=== PATIENT | female | born 1940 | race Caucasian/White ===

== ENCOUNTER 2023-03-01 17:27 | Inpatient (IN) | payer OTHER ==
[~2023-03-01] VITALS: Ht 30.5 cm; Wt 56.0 kg
[2023-03-01] MEDS ORDERED: ONDANSETRON HCL 4 MG/2 ML VIAL IV PRN (22:15)
[2023-03-01] MEDS ORDERED: MORPHINE SULFATE INJ 2 MG/ml SYRG IV PRN ×2 (22:15)
[2023-03-01] MEDS ORDERED: ACETAMINOPHEN 325 MG TAB PO PRN (22:15)
[2023-03-01] MEDS ORDERED: MORPHINE SULFATE 4 MG/ML SYR/VIAL IV PRN (22:15)
[2023-03-01] MEDS ORDERED: NITROGLYCERIN 0.4 MG SL TAB SL PRN (22:15)
[2023-03-01] MEDS: PANTOPRAZOLE 40mg/50ML NS AE 50 ML IV SCH (22:50)
[2023-03-01 23:28] VITALS: BP 151/63
[2023-03-01] MEDS ORDERED: SPIR50TA5 PO (23:34)
[2023-03-01] MEDS ORDERED: FURO40TA4 PO (23:34)
[2023-03-01] MEDS ORDERED: GLIP5TAB12 PO (23:34)
[2023-03-01] MEDS ORDERED: LEV25T PO (23:34)
[2023-03-01] MEDS ORDERED: LOVA10TA54 PO (23:34)
[2023-03-02 05:00] VITALS: BP 111/89
[2023-03-02 05:17] LABS: Urine Bacteria FEW /hpf (None Seen); Urine Blood Negative /uL (Negative); Urine Hyaline Cast FEW /lpf (0 - 2); Urine Mucus FEW (None Seen); Urine Specific Gravity 1.022 (1.001-1.035); Urine WBC 7 /hpf (0 - 5)
[2023-03-02] MEDS: PANTOPRAZOLE 40mg/50ML NS AE 50 ML IV SCH ×5 (06:27→23:15)
[2023-03-02 06:41] LABS: Basophils # (auto) 0 10 ^3/uL (0-0.2); Eosinophils # (auto) 0.1 10 ^3/uL (0-0.8); Lymphocytes # (auto) 0.3 10 ^3/uL (0.4-5.4); Lymphocytes % (auto) 11.2 % (10.0-50.0); Monocytes # (auto) 0.2 10 ^3/uL (0-1.3); Nucleated Red Blood Cells % 0.1 %; Red Cell Distribution Width 16.5 % (11.8-14.3); White Blood Cell 2.6 10^3/uL (4.4-10.8)
[2023-03-02 06:44] LABS: Basophils % (auto) 0.6 % (0.0-2.0); Eosinophils % (auto) 2.5 % (0.0-7.0); Hematocrit 19.9 % (36.0-46.0); Mean Corpuscular Hemoglobin 29.2 pg (28.0-32.0); Mean Corpuscular Hgb Conc. 34.7 g/dL (32.0-36.0); Mean Corpuscular Volume 84.4 fL (80.0-100.0); Monocytes % (auto) 8.6 % (0.0-12.0); Neutrophils % (auto) 77.1 % (37.0-80.0); Red Blood Cells 2.36 10^6/uL (4.0-5.20)
[2023-03-02 06:52] LABS: Hemoglobin 6.9 g/dL (12.2-16.2)
[2023-03-02 06:57] LABS: INR 1.36 (0.9-1.15); Partial Thromboplastin Time 28.4 sec (24.6-33.4)
[2023-03-02 07:07] LABS: Potassium 3.8 mmol/L (3.5-5.1)
[2023-03-02 07:17] LABS: Albumin 2.3 g/dL (3.4-5.0); BUN/Creatinine Ratio 32.4 (10.0-20.0); Bilirubin, Total 1.8 mg/dL (0.2-1.0); Calcium 8.4 mg/dL (8.5-10.1); Total Protein 5.6 g/dL (6.4-8.2)
[2023-03-02 09:05] VITALS: BP 112/48
[2023-03-02] MEDS ORDERED: FUROSEMIDE 20 MG/2 ML VIAL IV ONE (10:00)
[2023-03-02] MEDS ORDERED: OCTREOTIDE ACETATE 100 MCG in SODIUM CHL 0.9% 50 ML IV ONE (10:00)
[2023-03-02 11:00] LABS: % Iron Saturation 98.4 % (15-50)
[2023-03-02 11:49] LABS: Folate (Folic Acid) 10.88 ng/mL (5.38-24)
[2023-03-02] MEDS: OCTREOTIDE ACETATE 500 MCG in SODIUM CHL 0.9% 99 ML IV SCH ×2 (16:06→20:00)
[2023-03-02 16:40] VITALS: BP 122/63
[2023-03-02 21:55] VITALS: BP 104/54
[2023-03-02 22:12] VITALS: BP 116/58
[2023-03-02 22:46] VITALS: BP 104/54
[2023-03-03] VITALS (9 sets, daily range): BP systolic 97–128; BP diastolic 49–63
[2023-03-03] MEDS: OCTREOTIDE ACETATE 500 MCG in SODIUM CHL 0.9% 99 ML IV SCH ×2 (02:21→17:29)
[2023-03-03] MEDS: PANTOPRAZOLE 40mg/50ML NS AE 50 ML IV SCH ×4 (04:15→20:13)
[2023-03-03 11:23] LABS: Basophils # (auto) 0 10 ^3/uL (0-0.2); Basophils % (auto) 0.4 % (0.0-2.0); Eosinophils # (auto) 0.1 10 ^3/uL (0-0.8); Eosinophils % (auto) 2.8 % (0.0-7.0); Hematocrit 25.3 % (36.0-46.0); Hemoglobin 8.6 g/dL (12.2-16.2); Lymphocytes # (auto) 0.3 10 ^3/uL (0.4-5.4); Lymphocytes % (auto) 8.9 % (10.0-50.0); Mean Corpuscular Hemoglobin 29.1 pg (28.0-32.0); Mean Corpuscular Hgb Conc. 33.9 g/dL (32.0-36.0); Monocytes # (auto) 0.2 10 ^3/uL (0-1.3); Monocytes % (auto) 4.8 % (0.0-12.0); Neutrophils # (auto) 3.1 10 ^3/uL (1.6-8.6); Neutrophils % (auto) 83.1 % (37.0-80.0); Nucleated Red Blood Cells % 0.1 %; Red Blood Cells 2.94 10^6/uL (4.0-5.20); Red Cell Distribution Width 15.8 % (11.8-14.3); White Blood Cell 3.7 10^3/uL (4.4-10.8)
[2023-03-03 11:39] LABS: Potassium 4.2 mmol/L (3.5-5.1)
[2023-03-03 11:43] LABS: BUN/Creatinine Ratio 18.5 (10.0-20.0); Calcium 8.3 mg/dL (8.5-10.1)
[2023-03-03] MEDS ORDERED: FUROSEMIDE 20 MG/2 ML VIAL IV SCH (12:30)
[2023-03-03] MEDS: MUPIROCIN 2% OINT 15gm or 22gm FOR MRSA NARES EACHNOSTRI SCH ×2 (15:24→21:14)
[2023-03-03] MEDS ORDERED: FUROSEMIDE 20 MG/2 ML VIAL IV ONE (15:30)
[2023-03-03] MEDS: ALBUTEROL SULF 2.5 MG/0.5ML(0.5%) NEB SOLN NEB SCH (20:13)
[2023-03-04] VITALS (7 sets, daily range): BP systolic 89–104; BP diastolic 38–55
[2023-03-04] MEDS: PANTOPRAZOLE 40mg/50ML NS AE 50 ML IV SCH ×5 (00:52→22:06)
[2023-03-04] MEDS: OCTREOTIDE ACETATE 500 MCG in SODIUM CHL 0.9% 99 ML IV SCH ×3 (02:07→23:49)
[2023-03-04] MEDS: ALBUTEROL SULF 2.5 MG/0.5ML(0.5%) NEB SOLN NEB SCH ×5 (06:38→18:34)
[2023-03-04] MEDS: MUPIROCIN 2% OINT 15gm or 22gm FOR MRSA NARES EACHNOSTRI SCH ×2 (08:59→23:49)
[2023-03-04] MEDS: FUROSEMIDE 20 MG/2 ML VIAL IV SCH (08:59)
[2023-03-04 10:54] LABS: Basophils # (auto) 0 10 ^3/uL (0-0.2); Eosinophils # (auto) 0.1 10 ^3/uL (0-0.8); Lymphocytes # (auto) 0.3 10 ^3/uL (0.4-5.4); Monocytes # (auto) 0.2 10 ^3/uL (0-1.3); Nucleated Red Blood Cells % 0.1 %; White Blood Cell 3.4 10^3/uL (4.4-10.8)
[2023-03-04 10:57] LABS: Basophils % (auto) 0.5 % (0.0-2.0); Eosinophils % (auto) 2.6 % (0.0-7.0); Hematocrit 24.8 % (36.0-46.0); Hemoglobin 8.6 g/dL (12.2-16.2); Lymphocytes % (auto) 9.2 % (10.0-50.0); Mean Corpuscular Hemoglobin 29.6 pg (28.0-32.0); Mean Corpuscular Hgb Conc. 34.7 g/dL (32.0-36.0); Mean Corpuscular Volume 85.3 fL (80.0-100.0); Monocytes % (auto) 5.9 % (0.0-12.0); Neutrophils # (auto) 2.8 10 ^3/uL (1.6-8.6); Neutrophils % (auto) 81.8 % (37.0-80.0); Red Blood Cells 2.91 10^6/uL (4.0-5.20); Red Cell Distribution Width 15.5 % (11.8-14.3)
[2023-03-04] MEDS ORDERED: PHYTONADIONE(VitK) ORAL Susp 10mg/10ml(1mg/ml) PO ONE (11:00)
[2023-03-04 11:14] LABS: Potassium 3.9 mmol/L (3.5-5.1)
[2023-03-04 11:19] LABS: BUN/Creatinine Ratio 15.2 (10.0-20.0); Calcium 7.9 mg/dL (8.5-10.1)
[2023-03-04] MEDS ORDERED: ONDANSETRON HCL 4 MG/2 ML VIAL IV ONE (11:35)
[2023-03-04] MEDS ORDERED: MIDAZOLAM HCL 2MG/2ML 2ml VIAL (1mg/ml) ONE (19:11)
[2023-03-04] MEDS ORDERED: KETAMINE HCL 10 ML ONE (19:11)
[2023-03-04] MEDS ORDERED: fentaNYL CITRATE 100 MCG/2 ML VL ONE (19:11)
[2023-03-04] MEDS ORDERED: PROPOFOL 10 MG/ML 20 ML IV ONE (19:12)
[2023-03-04] MEDS ORDERED: DexAMETHasone SOD PHOS 10MG/1ML VIAL INJ ONE (19:12)
[2023-03-04] MEDS ORDERED: SODIUM CHLORIDE LOCK 10 ML ONE (19:12)
[2023-03-05] MEDS: PANTOPRAZOLE 40mg/50ML NS AE 50 ML IV SCH ×4 (01:15→15:21)
[2023-03-05 04:30] VITALS: BP 109/51
[2023-03-05 07:56] LABS: Basophils # (auto) 0 10 ^3/uL (0-0.2); Eosinophils # (auto) 0.1 10 ^3/uL (0-0.8); Lymphocytes # (auto) 0.3 10 ^3/uL (0.4-5.4); Monocytes # (auto) 0.2 10 ^3/uL (0-1.3); White Blood Cell 3.1 10^3/uL (4.4-10.8)
[2023-03-05 07:59] LABS: Basophils % (auto) 0.5 % (0.0-2.0); Eosinophils % (auto) 3.6 % (0.0-7.0); Hematocrit 24.3 % (36.0-46.0); Hemoglobin 8.5 g/dL (12.2-16.2); Lymphocytes % (auto) 9.8 % (10.0-50.0); Mean Corpuscular Hemoglobin 29.5 pg (28.0-32.0); Mean Corpuscular Hgb Conc. 34.8 g/dL (32.0-36.0); Mean Corpuscular Volume 84.9 fL (80.0-100.0); Monocytes % (auto) 6.6 % (0.0-12.0); Neutrophils # (auto) 2.5 10 ^3/uL (1.6-8.6); Neutrophils % (auto) 79.5 % (37.0-80.0); Nucleated Red Blood Cells % 0.1 %; Red Blood Cells 2.86 10^6/uL (4.0-5.20)
[2023-03-05] MEDS: OCTREOTIDE ACETATE 500 MCG in SODIUM CHL 0.9% 99 ML IV SCH (09:00)
[2023-03-05 09:07] LABS: BUN/Creatinine Ratio 20.3 (10.0-20.0)
[2023-03-05 09:18] LABS: Potassium 4.3 mmol/L (3.5-5.1)
[2023-03-05 09:37] VITALS: BP 96/45
[2023-03-05] MEDS: MUPIROCIN 2% OINT 15gm or 22gm FOR MRSA NARES EACHNOSTRI SCH (09:58)
[2023-03-05] MEDS: FUROSEMIDE 20 MG/2 ML VIAL IV SCH (09:58)
[2023-03-05] MEDS ORDERED: PANT40T PO (10:24)
[2023-03-05] MEDS ORDERED: MUPI2OIN2 EACHNOSTRI (10:24)
[2023-03-05] MEDS ORDERED: SUCR1SUS10 PO (10:24)
[2023-03-05 14:10] VITALS: BP 105/45
[2023-03-05 16:21] VITALS: BP 125/106
[2023-03-05] MEDS: ALBUTEROL SULF 2.5 MG/0.5ML(0.5%) NEB SOLN NEB SCH (18:28)
[2023-03-05 18:44] VITALS: BP 125/106
== END 2023-03-05 20:10 | disposition home health service (06) | DRG 432 ==
LOC: WEST WING 21:57 → TELE-WESTW 03-04 23:40
PROVIDERS: ADMIT Hospitalist; ATTEND Hospitalist
PROC: 30233N1 Transfusion of Nonautologous Red Blood Cells into Peripheral Vein, Percutaneous Approach (ICD-10-PCS; 2023-03-02)
PROC: 0W9G3ZZ Drainage of Peritoneal Cavity, Percutaneous Approach (ICD-10-PCS; 2023-03-03)
PROC: 30233R1 Transfusion of Nonautologous Platelets into Peripheral Vein, Percutaneous Approach (ICD-10-PCS; 2023-03-03)
PROC: 06L38CZ Occlusion of Esophageal Vein with Extraluminal Device, Via Natural or Artificial Opening Endoscopic (ICD-10-PCS; principal; 2023-03-04 19:23)
DX: K74.60 Unspecified cirrhosis of liver (principal); I50.33 Acute on chronic diastolic (congestive) heart failure; I85.11 Secondary esophageal varices with bleeding; J96.01 Acute respiratory failure with hypoxia; D61.818 Other pancytopenia; K92.0 Hematemesis; R18.8 Other ascites; J98.11 Atelectasis; Z20.822 Contact with and (suspected) exposure to COVID-19; I11.0 Hypertensive heart disease with heart failure; E10.9 Type 1 diabetes mellitus without complications; E03.9 Hypothyroidism, unspecified; E78.5 Hyperlipidemia, unspecified; Z79.899 Other long term (current) drug therapy; Z80.0 Family history of malignant neoplasm of digestive organs; Z82.3 Family history of stroke; Z83.3 Family history of diabetes mellitus; I48.91 Unspecified atrial fibrillation
CPT/HCPCS: 36415; 71045; 74177; 76604; 76856; 76942; 80048; 80053; 81001; 82607; 82746; 83540; 83550; 83986; 85025; 85610; 85730; 86850; 86900; 86901; 86920; 87081; 87205; 87426; 89051; 93306; 93886; 94640; G0378; J1100; J2250; J2405; J2704

== ENCOUNTER 2023-03-24 10:24 | Inpatient (IN) | payer OTHER ==
[~2023-03-24] VITALS: Ht 147.3 cm; Wt 60.1 kg
[2023-03-24] VITALS (53 sets, daily range): BP systolic 75–122; BP diastolic 35–73
[~2023-03-24 10:24] MED LIST: FURO40TA4 PO; LEV25T PO; LOVA10TA54 PO; MUPI2OIN2 EACHNOSTRI; PANT40T PO; SPIR50TA5 PO; SUCR1SUS10 PO
[2023-03-24 10:52] LABS: Basophils # (auto) 0 10 ^3/uL (0-0.2); Eosinophils # (auto) 0 10 ^3/uL (0-0.8); Lymphocytes # (auto) 0.4 10 ^3/uL (0.4-5.4); Monocytes # (auto) 0.3 10 ^3/uL (0-1.3); White Blood Cell 3.6 10^3/uL (4.4-10.8)
[2023-03-24] MEDS ORDERED: SODIUM CHL 0.9% 50 ML ONE (10:52)
[2023-03-24] MEDS ORDERED: ANGIOMAX 250 MG VIAL IV ONE (10:52)
[2023-03-24] MEDS ORDERED: MIDAZOLAM HCL 2MG/2ML 2ml VIAL (1mg/ml) ONE (10:55)
[2023-03-24] MEDS ORDERED: fentaNYL CITRATE 100 MCG/2 ML VL ONE (10:55)
[2023-03-24 10:56] LABS: Basophils % (auto) 0.2 % (0.0-2.0); Eosinophils % (auto) 0.3 % (0.0-7.0); Hematocrit 15.1 % (36.0-46.0); Mean Corpuscular Hemoglobin 29.2 pg (28.0-32.0); Mean Corpuscular Hgb Conc. 35.2 g/dL (32.0-36.0); Mean Corpuscular Volume 82.9 fL (80.0-100.0); Monocytes % (auto) 8.2 % (0.0-12.0); Neutrophils # (auto) 2.9 10 ^3/uL (1.6-8.6); Neutrophils % (auto) 81.3 % (37.0-80.0); Red Blood Cells 1.82 10^6/uL (4.0-5.20); Red Cell Distribution Width 14.8 % (11.8-14.3)
[2023-03-24] MEDS ORDERED: LIDOCAINE 2%HCL (LOCAL ANESTH.) INJ 10ml MDV ONE (10:56)
[2023-03-24] MEDS ORDERED: IODIXANOL 320MG/ML 100ML BTL IV ONE ×2 (10:56→11:36)
[2023-03-24] MEDS ORDERED: ASPirin 81 mg TAB PO ONE ×2 (11:00)
[2023-03-24] MEDS ORDERED: SODIUM CHLORIDE 0.9% 250 ML IV ONE (11:00)
[2023-03-24] MEDS: SODIUM CHLORIDE 0.9% 250 ML IV ONE ×2 (11:02→12:31)
[2023-03-24 11:04] LABS: Hemoglobin 5.3 g/dL (12.2-16.2)
[2023-03-24 11:16] LABS: INR 1.29 (0.9-1.15); Partial Thromboplastin Time 25.4 sec (24.6-33.4)
[2023-03-24] MEDS ORDERED: ATROPINE SULF 1 MG/10ml SYR ONE (11:18)
[2023-03-24] MEDS ORDERED: EPINEPHrine HCL 1 MG/10 ML SYRG ONE (11:18)
[2023-03-24] MEDS ORDERED: HEPARIN SODIUM (PORCINE) 5000 UNITS/ML 1ML VIAL ONE (11:19)
[2023-03-24] MEDS ORDERED: VERAPAMIL 2.5MG/ML INJ 2ML VIAL IV ONE (11:19)
[2023-03-24 11:25] LABS: Albumin 2.4 g/dL (3.4-5.0); Magnesium 2.1 mg/dL (1.6-2.6); Potassium 3.7 mmol/L (3.5-5.1)
[2023-03-24] MEDS ORDERED: LIDOCAINE 2%HCL (LOCAL ANESTH.) INJ 20ML MDV ONE (11:27)
[2023-03-24 11:28] LABS: BUN/Creatinine Ratio 26.6 (10.0-20.0); Bilirubin, Total 2.1 mg/dL (0.2-1.0); Total Protein 6.3 g/dL (6.4-8.2)
[2023-03-24] MEDS ORDERED: GLIP5TAB12 PO (11:41)
[2023-03-24] MEDS ORDERED: ALBUAER3 IN (11:43)
[2023-03-24] MEDS ORDERED: hydrALAZINE HCL 20 MG/ML VL IV PRN (11:45)
[2023-03-24] MEDS ORDERED: MORPHINE SULFATE INJ 2 MG/ml SYRG IV PRN (11:45)
[2023-03-24] MEDS ORDERED: ONDANSETRON HCL 4 MG/2 ML VIAL IV PRN (11:45)
[2023-03-24] MEDS ORDERED: DOCUSATE SOD 100 MG CAP PO PRN (11:45)
[2023-03-24] MEDS ORDERED: NITROGLYCERIN 0.4 MG SL TAB SL PRN (11:45)
[2023-03-24] MEDS ORDERED: HYDROcodone-ACET 5/325MG TAB PO PRN (11:45)
[2023-03-24] MEDS ORDERED: CLOPIDOGREL 300 MG TAB ONE (12:02)
[2023-03-24] MEDS ORDERED: ASPirin 325 MG TAB PO ONE (12:30)
[2023-03-24] MEDS ORDERED: NOREPINEPHRINE 8 MG/250ML KIT 250 ML IV ONE (12:54)
[2023-03-24] MEDS: NOREPINEPHRINE 8 MG/250ML KIT 250 ML IV SCH (12:57)
[2023-03-24] MEDS ORDERED: SODIUM CHLORIDE 0.9% 1,000 ML IV ONE (13:00)
[2023-03-24] MEDS: PANTOPRAZOLE 40mg/50ML NS AE 50 ML IV SCH ×3 (14:15→23:30)
[2023-03-24] MEDS: SODIUM CHLORIDE 0.9% 1,000 ML IV SCH (14:35)
[2023-03-24] MEDS: SODIUM CHLOR 0.9% PF (SALINE LOCK) 10ML VIAL/SYR IV SCH ×2 (14:47→21:28)
[2023-03-24 18:24] LABS: Hematocrit 23.3 % (36.0-46.0)
[2023-03-24] MEDS ORDERED: DEXTROSE (50%) 50ML SYRG IV PRN (18:30)
[2023-03-24 18:49] LABS: Albumin 2.3 g/dL (3.4-5.0); Calcium 8.1 mg/dL (8.5-10.1); Magnesium 1.9 mg/dL (1.6-2.6); Potassium 3.6 mmol/L (3.5-5.1)
[2023-03-24 18:53] LABS: BUN/Creatinine Ratio 27.8 (10.0-20.0); Bilirubin, Total 2.2 mg/dL (0.2-1.0); Total Protein 5.8 g/dL (6.4-8.2)
[2023-03-24] MEDS: PRAVASTATIN SODIUM 20 MG TAB PO SCH (21:28)
[2023-03-24] MEDS: ACCU-CHEK COMFORT CURVE STRIP VI SCH (21:29)
[2023-03-24] MEDS: InsuLIN REG 1unit/0.01ml Soln (100units/ml) SC SCH (21:29)
[2023-03-24] MEDS: ACETAMINOPHEN 325 MG TAB PO PRN (21:44)
[2023-03-25] VITALS (92 sets, daily range): BP systolic 76–141; BP diastolic 22–75
[2023-03-25] MEDS: SUCRALFATE 1 GM/10 ML ORAL SUSP PO SCH ×4 (00:11→18:27)
[2023-03-25] MEDS: PANTOPRAZOLE 40mg/50ML NS AE 50 ML IV SCH ×4 (04:30→20:00)
[2023-03-25 04:48] LABS: Hematocrit 24.4 % (36.0-46.0); Hemoglobin 8.4 g/dL (12.2-16.2); Mean Corpuscular Hemoglobin 29.6 pg (28.0-32.0); Mean Corpuscular Hgb Conc. 34.3 g/dL (32.0-36.0); Mean Corpuscular Volume 86.4 fL (80.0-100.0); Red Blood Cells 2.83 10^6/uL (4.0-5.20); Red Cell Distribution Width 14.8 % (11.8-14.3)
[2023-03-25 04:53] LABS: Basophils % (manual) 0 (0.0-2.0); Blast Cells 0; Metamyelocytes % 0; Myelocytes % 0; Promyelocytes % 0; Reactive Lymphocytes 0
[2023-03-25 04:55] LABS: Calcium 8.1 mg/dL (8.5-10.1); Potassium 3.6 mmol/L (3.5-5.1)
[2023-03-25 04:59] LABS: BUN/Creatinine Ratio 30.8 (10.0-20.0)
[2023-03-25 05:23] LABS: Band Neutrophils % (manual) 3; Eosinophils % (manual) 1 (0-7); Lymphocytes % (manual) 20 (10.0-50.0); Monocytes % (manual) 1 (0-12)
[2023-03-25] MEDS: SODIUM CHLOR 0.9% PF (SALINE LOCK) 10ML VIAL/SYR IV SCH ×3 (06:12→22:01)
[2023-03-25] MEDS: SODIUM CHLORIDE 0.9% 1,000 ML IV SCH (06:39)
[2023-03-25] MEDS: LEVOTHYROXINE SODIUM 25 MCG TAB PO SCH (06:39)
[2023-03-25] MEDS: InsuLIN REG 1unit/0.01ml Soln (100units/ml) SC SCH ×4 (06:42→22:13)
[2023-03-25] MEDS: ACCU-CHEK COMFORT CURVE STRIP VI SCH ×4 (07:00→22:01)
[2023-03-25 08:06] LABS: Basophils # (auto) 0 10 ^3/uL (0-0.2); Eosinophils # (auto) 0 10 ^3/uL (0-0.8); Eosinophils % (auto) 0.6 % (0.0-7.0); Hemoglobin 9.3 g/dL (12.2-16.2); Lymphocytes # (auto) 0.2 10 ^3/uL (0.4-5.4); Monocytes # (auto) 0.1 10 ^3/uL (0-1.3); Neutrophils # (auto) 1.2 10 ^3/uL (1.6-8.6)
[2023-03-25 08:08] LABS: Basophils % (auto) 0.4 % (0.0-2.0); Hematocrit 26.9 % (36.0-46.0); Lymphocytes % (auto) 13.6 % (10.0-50.0); Mean Corpuscular Hemoglobin 29.9 pg (28.0-32.0); Mean Corpuscular Hgb Conc. 34.7 g/dL (32.0-36.0); Neutrophils % (auto) 76.4 % (37.0-80.0); Nucleated Red Blood Cells % 0.4 %; Red Blood Cells 3.12 10^6/uL (4.0-5.20); Red Cell Distribution Width 14.7 % (11.8-14.3)
[2023-03-25 09:22] LABS: White Blood Cell 1.5 10^3/uL (4.4-10.8)
[2023-03-25] MEDS ORDERED: MORPHINE SULFATE INJ 2 MG/ml SYRG IV ONE (11:15)
[2023-03-25] MEDS ORDERED: FILGRASTIM (TBO) 300 MCG/0.5 ML SYRG SC ONE (13:15)
[2023-03-25] MEDS: NOREPINEPHRINE 8 MG/250ML KIT 250 ML IV SCH (14:00)
[2023-03-25] MEDS: ALBUMIN 25% 100 ML IV SCH ×2 (15:20→18:28)
[2023-03-25] MEDS: cefTRIAXone 1GM/50ML D5W 50 ML IV SCH (19:20)
[2023-03-25] MEDS: PRAVASTATIN SODIUM 20 MG TAB PO SCH (22:01)
[2023-03-25 23:28] LABS: Urine Bacteria NONE SEEN /hpf (None Seen); Urine Blood Negative /uL (Negative); Urine Mucus FEW (None Seen); Urine Specific Gravity 1.049 (1.001-1.035); Urine WBC 1 /hpf (0 - 5)
[2023-03-26] VITALS (73 sets, daily range): BP systolic 93–130; BP diastolic 38–68
[2023-03-26] MEDS: PANTOPRAZOLE 40mg/50ML NS AE 50 ML IV SCH ×5 (00:43→22:04)
[2023-03-26] MEDS: ALBUMIN 25% 100 ML IV SCH (02:31)
[2023-03-26 03:30] LABS: Eosinophils # (auto) 0 10 ^3/uL (0-0.8); Eosinophils % (auto) 0.2 % (0.0-7.0); Neutrophils # (auto) 5.4 10 ^3/uL (1.6-8.6); Red Cell Distribution Width 15.2 % (11.8-14.3)
[2023-03-26 03:31] LABS: Basophils # (auto) 0 10 ^3/uL (0-0.2); Basophils % (auto) 0.4 % (0.0-2.0); Lymphocytes # (auto) 0.4 10 ^3/uL (0.4-5.4); Lymphocytes % (auto) 6.2 % (10.0-50.0); Mean Corpuscular Hemoglobin 30.5 pg (28.0-32.0); Mean Corpuscular Hgb Conc. 34.9 g/dL (32.0-36.0); Mean Corpuscular Volume 87.4 fL (80.0-100.0); Monocytes # (auto) 0.5 10 ^3/uL (0-1.3); Monocytes % (auto) 7.6 % (0.0-12.0); Neutrophils % (auto) 85.6 % (37.0-80.0); Nucleated Red Blood Cells % 0.1 %; Red Blood Cells 2.28 10^6/uL (4.0-5.20); White Blood Cell 6.3 10^3/uL (4.4-10.8)
[2023-03-26 04:12] LABS: Calcium 8.8 mg/dL (8.5-10.1); Potassium 3.5 mmol/L (3.5-5.1)
[2023-03-26 04:14] LABS: BUN/Creatinine Ratio 25.3 (10.0-20.0)
[2023-03-26] MEDS: InsuLIN REG 1unit/0.01ml Soln (100units/ml) SC SCH ×4 (06:06→22:19)
[2023-03-26] MEDS: LEVOTHYROXINE SODIUM 25 MCG TAB PO SCH (06:06)
[2023-03-26] MEDS: SUCRALFATE 1 GM/10 ML ORAL SUSP PO SCH ×4 (06:06→18:48)
[2023-03-26] MEDS: SODIUM CHLOR 0.9% PF (SALINE LOCK) 10ML VIAL/SYR IV SCH ×4 (06:06→22:10)
[2023-03-26] MEDS: NOREPINEPHRINE 8 MG/250ML KIT 250 ML IV SCH (06:15)
[2023-03-26] MEDS: ACCU-CHEK COMFORT CURVE STRIP VI SCH ×4 (06:15→22:11)
[2023-03-26] MEDS ORDERED: POTASSIUM EFFERVESENT TAB 25 MEQ PO ONE (08:00)
[2023-03-26 09:49] LABS: INR 1.64 (0.9-1.15); Partial Thromboplastin Time 37.3 sec (24.6-33.4)
[2023-03-26] MEDS ORDERED: ASPirin 81 mg TAB PO SCH (10:00)
[2023-03-26] MEDS: CLOPIDOGREL BISULFATE 75 MG TAB PO SCH (10:16)
[2023-03-26] MEDS: cefTRIAXone 1GM/50ML D5W 50 ML IV SCH (10:16)
[2023-03-26] MEDS: FILGRASTIM (TBO) 300 MCG/0.5 ML SYRG SC SCH (10:17)
[2023-03-26] MEDS ORDERED: LIDOCAINE 1% (LOCAL ANESTH.) PF 5ml SDV ID ONE (15:45)
[2023-03-26] MEDS: PRAVASTATIN SODIUM 20 MG TAB PO SCH (22:04)
[2023-03-27] VITALS (25 sets, daily range): BP systolic 86–120; BP diastolic 37–57
[2023-03-27] MEDS: SUCRALFATE 1 GM/10 ML ORAL SUSP PO SCH ×5 (00:18→23:35)
[2023-03-27] MEDS: PANTOPRAZOLE 40mg/50ML NS AE 50 ML IV SCH ×5 (03:39→20:28)
[2023-03-27 06:26] LABS: Basophils # (auto) 0 10 ^3/uL (0-0.2); Eosinophils # (auto) 0 10 ^3/uL (0-0.8); Hemoglobin 9.4 g/dL (12.2-16.2); Lymphocytes # (auto) 0.2 10 ^3/uL (0.4-5.4); Monocytes # (auto) 0.1 10 ^3/uL (0-1.3); Neutrophils # (auto) 2.5 10 ^3/uL (1.6-8.6); White Blood Cell 2.9 10^3/uL (4.4-10.8)
[2023-03-27 06:29] LABS: Basophils % (auto) 0.2 % (0.0-2.0); Eosinophils % (auto) 1.5 % (0.0-7.0); Lymphocytes % (auto) 8.5 % (10.0-50.0); Mean Corpuscular Hemoglobin 29.6 pg (28.0-32.0); Mean Corpuscular Hgb Conc. 34.9 g/dL (32.0-36.0); Mean Corpuscular Volume 84.7 fL (80.0-100.0); Neutrophils % (auto) 86.8 % (37.0-80.0); Nucleated Red Blood Cells % 0.2 %; Red Blood Cells 3.19 10^6/uL (4.0-5.20)
[2023-03-27 06:43] LABS: BUN/Creatinine Ratio 28.8 (10.0-20.0)
[2023-03-27] MEDS: SODIUM CHLOR 0.9% PF (SALINE LOCK) 10ML VIAL/SYR IV SCH ×5 (06:51→22:21)
[2023-03-27] MEDS: InsuLIN REG 1unit/0.01ml Soln (100units/ml) SC SCH ×4 (07:05→22:32)
[2023-03-27] MEDS: ACCU-CHEK COMFORT CURVE STRIP VI SCH ×4 (07:06→22:25)
[2023-03-27] MEDS: LEVOTHYROXINE SODIUM 25 MCG TAB PO SCH (07:11)
[2023-03-27] MEDS: CLOPIDOGREL BISULFATE 75 MG TAB PO SCH (10:41)
[2023-03-27] MEDS: FILGRASTIM (TBO) 300 MCG/0.5 ML SYRG SC SCH (10:42)
[2023-03-27] MEDS: CIPROFLOXACIN HCL 500 MG TAB PO SCH ×2 (11:28→22:23)
[2023-03-27 12:32] LABS: Basophils # (auto) 0 10 ^3/uL (0-0.2); Eosinophils # (auto) 0 10 ^3/uL (0-0.8); Eosinophils % (auto) 1.5 % (0.0-7.0); Hemoglobin 9.3 g/dL (12.2-16.2); Monocytes # (auto) 0.1 10 ^3/uL (0-1.3); Neutrophils # (auto) 2.1 10 ^3/uL (1.6-8.6); White Blood Cell 2.5 10^3/uL (4.4-10.8)
[2023-03-27 12:34] LABS: Basophils % (auto) 0.1 % (0.0-2.0); Hematocrit 26.9 % (36.0-46.0); Lymphocytes # (auto) 0.2 10 ^3/uL (0.4-5.4); Lymphocytes % (auto) 9.3 % (10.0-50.0); Mean Corpuscular Hemoglobin 29.3 pg (28.0-32.0); Mean Corpuscular Hgb Conc. 34.6 g/dL (32.0-36.0); Mean Corpuscular Volume 84.7 fL (80.0-100.0); Monocytes % (auto) 5.9 % (0.0-12.0); Neutrophils % (auto) 83.2 % (37.0-80.0); Nucleated Red Blood Cells % 0.1 %; Red Blood Cells 3.17 10^6/uL (4.0-5.20); Red Cell Distribution Width 16.1 % (11.8-14.3)
[2023-03-27] MEDS: PRAVASTATIN SODIUM 20 MG TAB PO SCH (22:22)
[2023-03-28] MEDS: ACETAMINOPHEN 325 MG TAB PO PRN ×2 (00:28→17:34)
[2023-03-28] MEDS: PANTOPRAZOLE 40mg/50ML NS AE 50 ML IV SCH ×4 (02:02→17:34)
[2023-03-28 05:00] VITALS: BP 101/51
[2023-03-28] MEDS: SUCRALFATE 1 GM/10 ML ORAL SUSP PO SCH ×3 (06:34→17:52)
[2023-03-28] MEDS: LEVOTHYROXINE SODIUM 25 MCG TAB PO SCH (06:34)
[2023-03-28] MEDS: SODIUM CHLOR 0.9% PF (SALINE LOCK) 10ML VIAL/SYR IV SCH ×5 (06:40→21:33)
[2023-03-28] MEDS: InsuLIN REG 1unit/0.01ml Soln (100units/ml) SC SCH ×4 (06:40→21:36)
[2023-03-28] MEDS: ACCU-CHEK COMFORT CURVE STRIP VI SCH ×4 (06:41→21:33)
[2023-03-28] MEDS ORDERED: CIP500T PO (07:57)
[2023-03-28] MEDS ORDERED: SUCR1SUS10 PO (07:57)
[2023-03-28] MEDS ORDERED: CLOP75TA70 PO (07:57)
[2023-03-28] MEDS ORDERED: PANT40T PO (07:57)
[2023-03-28 09:00] VITALS: BP 99/39
[2023-03-28] MEDS: FUROSEMIDE 20 MG TAB PO SCH (10:00)
[2023-03-28] MEDS: CLOPIDOGREL BISULFATE 75 MG TAB PO SCH (10:23)
[2023-03-28] MEDS: CIPROFLOXACIN HCL 500 MG TAB PO SCH ×2 (10:24→21:32)
[2023-03-28] MEDS: FILGRASTIM (TBO) 300 MCG/0.5 ML SYRG SC SCH (10:33)
[2023-03-28 13:00] VITALS: BP 110/65
[2023-03-28 17:03] VITALS: BP 113/48
[2023-03-28] MEDS: PRAVASTATIN SODIUM 20 MG TAB PO SCH (21:32)
[2023-03-28 22:00] VITALS: BP 99/46
[2023-03-29] MEDS: SUCRALFATE 1 GM/10 ML ORAL SUSP PO SCH ×3 (00:01→12:04)
[2023-03-29] MEDS: ACETAMINOPHEN 325 MG TAB PO PRN (00:06)
[2023-03-29 05:00] VITALS: BP 105/51
[2023-03-29] MEDS: SODIUM CHLOR 0.9% PF (SALINE LOCK) 10ML VIAL/SYR IV SCH ×2 (05:39→09:52)
[2023-03-29] MEDS: PANTOPRAZOLE 40mg/50ML NS AE 50 ML IV SCH ×2 (05:39)
[2023-03-29] MEDS: ACCU-CHEK COMFORT CURVE STRIP VI SCH ×2 (05:46→12:04)
[2023-03-29] MEDS: LEVOTHYROXINE SODIUM 25 MCG TAB PO SCH (05:48)
[2023-03-29] MEDS: InsuLIN REG 1unit/0.01ml Soln (100units/ml) SC SCH ×2 (05:51→12:10)
[2023-03-29 09:00] VITALS: BP 103/57
[2023-03-29] MEDS: CIPROFLOXACIN HCL 500 MG TAB PO SCH (09:44)
[2023-03-29] MEDS: FUROSEMIDE 20 MG TAB PO SCH (09:45)
[2023-03-29] MEDS: CLOPIDOGREL BISULFATE 75 MG TAB PO SCH (09:46)
[2023-03-29] MEDS: FILGRASTIM (TBO) 300 MCG/0.5 ML SYRG SC SCH (09:46)
[2023-03-29 13:00] VITALS: BP 100/53
[2023-03-29 16:13] VITALS: BP 103/57
[2023-03-29 17:00] VITALS: BP 112/76
[2023-03-29] MEDS ORDERED: PANTOPRAZOLE 40 MG TAB PO SCH (22:00)
== END 2023-03-29 17:40 | disposition home health service (06) | DRG 248 ==
LOC: ER 10:24 → TELE 11:46 → ICU WEST 17:15 → TELE-CENTR 03-27 13:46
PROVIDERS: ADMIT Internal Medicine; ATTEND Internal Medicine
PROC: 02703DZ Dilation of Coronary Artery, One Artery with Intraluminal Device, Percutaneous Approach (ICD-10-PCS; principal; 2023-03-24)
PROC: 4A023N7 Measurement of Cardiac Sampling and Pressure, Left Heart, Percutaneous Approach (ICD-10-PCS; 2023-03-24)
PROC: B211YZZ Fluoroscopy of Multiple Coronary Arteries using Other Contrast (ICD-10-PCS; 2023-03-24)
PROC: B215YZZ Fluoroscopy of Left Heart using Other Contrast (ICD-10-PCS; 2023-03-24)
PROC: B41FYZZ Fluoroscopy of Right Lower Extremity Arteries using Other Contrast (ICD-10-PCS; 2023-03-24)
PROC: 30233N1 Transfusion of Nonautologous Red Blood Cells into Peripheral Vein, Percutaneous Approach (ICD-10-PCS; 2023-03-24)
PROC: 0W9G3ZZ Drainage of Peritoneal Cavity, Percutaneous Approach (ICD-10-PCS; 2023-03-25)
PROC: 02HV33Z Insertion of Infusion Device into Superior Vena Cava, Percutaneous Approach (ICD-10-PCS; 2023-03-26)
PROC: B548ZZA Ultrasonography of Superior Vena Cava, Guidance (ICD-10-PCS; 2023-03-26)
DX: I21.19 ST elevation (STEMI) myocardial infarction involving other coronary artery of inferior wall (principal); I50.31 Acute diastolic (congestive) heart failure; R18.8 Other ascites; J96.11 Chronic respiratory failure with hypoxia; D61.818 Other pancytopenia; K74.60 Unspecified cirrhosis of liver; E11.9 Type 2 diabetes mellitus without complications; K75.81 Nonalcoholic steatohepatitis (NASH); G56.00 Carpal tunnel syndrome, unspecified upper limb; E03.9 Hypothyroidism, unspecified; E78.5 Hyperlipidemia, unspecified; D64.9 Anemia, unspecified; D72.819 Decreased white blood cell count, unspecified; Z79.02 Long term (current) use of antithrombotics/antiplatelets; Z79.899 Other long term (current) drug therapy; I11.0 Hypertensive heart disease with heart failure
CPT/HCPCS: 36415; 36430; 36569; 71045; 74176; 75710; 76705; 76856; 76942; 80048; 80053; 80061; 81001; 82962; 83036; 83735; 83880; 83986; 84443; 84484; 85007; 85014; 85018; 85025; 85027; 85610; 85730; 86850; 86900; 86901; 86920; 87040; 87077; 87081; 87086; 87186; 87205; 89051; 92928; 93005; 93306; 93458; 96361; 96365; 99152; 99153; 99291; G0378; J0696; J1447; J1815; J2001; J2250; J2405; P9047; Q9967

== ENCOUNTER 2023-06-27 00:53 | Inpatient (IN) | payer OTHER ==
[~2023-06-27] VITALS: Ht 152.4 cm; Wt 46.7 kg
[~2023-06-27 00:53] MED LIST changes: +ALBUAER3 IN; +CIP500T PO; +CLOP75TA70 PO; +GLIP5TAB12 PO; -MUPI2OIN2 EACHNOSTRI; -SPIR50TA5 PO; -SUCR1SUS10 PO; +SUCR1SUS26 PO
[2023-06-27 01:25] VITALS: PULSE 81; RESP 22; O2SAT 93
[2023-06-27 01:40] LABS: Basophils # (auto) 0 10 ^3/uL (0-0.2); Basophils % (auto) 0.3 % (0.0-2.0); Eosinophils # (auto) 0 10 ^3/uL (0-0.8); Eosinophils % (auto) 0.4 % (0.0-7.0); Hematocrit 38.7 % (36.0-46.0); Hemoglobin 12.5 g/dL (12.2-16.2); Lymphocytes # (auto) 0.3 10 ^3/uL (0.4-5.4); Lymphocytes % (auto) 3.8 % (10.0-50.0); Mean Corpuscular Hemoglobin 29.4 pg (28.0-32.0); Mean Corpuscular Hgb Conc. 32.3 g/dL (32.0-36.0); Mean Corpuscular Volume 90.9 fL (80.0-100.0); Monocytes # (auto) 0.6 10 ^3/uL (0-1.3); Monocytes % (auto) 7.7 % (0.0-12.0); Neutrophils # (auto) 6.8 10 ^3/uL (1.6-8.6); Neutrophils % (auto) 87.8 % (37.0-80.0); Red Blood Cells 4.26 10^6/uL (4.0-5.20); White Blood Cell 7.8 10^3/uL (4.4-10.8)
[2023-06-27 01:53] LABS: Red Cell Distribution Width 21.3 % (11.8-14.3)
[2023-06-27 01:55] LABS: Albumin 2.4 g/dL (3.4-5.0); BUN/Creatinine Ratio 22.5 (10.0-20.0); Calcium 9.1 mg/dL (8.5-10.1); Potassium 4.4 mmol/L (3.5-5.1)
[2023-06-27 01:58] LABS: Bilirubin, Total 1.9 mg/dL (0.2-1.0); Total Protein 6.6 g/dL (6.4-8.2)
[2023-06-27 02:00] LABS: Lactic Acid w/Reflex 2.1 mmol/L (0.4-2.0)
[2023-06-27] MEDS ORDERED: cefTRIAXone 1GM/50ML D5W 50 ML IV SCH (02:45)
[2023-06-27] MEDS ORDERED: ONDANSETRON HCL 4 MG/2 ML VIAL IV ONE (02:45)
[2023-06-27] MEDS ORDERED: AZITHROMYCIN 500MG/ 250ML 250 ML IV ONE (02:45)
[2023-06-27] MEDS ORDERED: PANTOPRAZOLE 40 MG/10 ML VIAL INJ IV ONE (02:45)
[2023-06-27] MEDS ORDERED: CLINDAMYCIN 600MG IV 50 ML IV ONE (02:45)
[2023-06-27] MEDS ORDERED: ACETAMINOPHEN 500 MG TAB PO ONE (02:45)
[2023-06-27 02:52] LABS: Anisocytosis Slight; Platelet Estimate Adequate
[2023-06-27 02:58] LABS: Base Excess -2.5 mmol/L (-2.0-2.0)
[2023-06-27 03:16] LABS: INR 1.27 (0.9-1.15); Partial Thromboplastin Time 29.5 SEC (24.5-34.5); Prothrombin Time 13.1 sec (9.3-11.8)
[2023-06-27 04:14] LABS: Blood Alcohol < 3.0 mg/dL (<10); Magnesium 2.3 mg/dL (1.6-2.6)
[2023-06-27] MEDS ORDERED: IOHEXOL 300 MG/ML 100ML BOTTLE IJ ONE (07:10)
[2023-06-27 07:43] VITALS: PULSE 76; RESP 20; O2SAT 98
[2023-06-27] MEDS ORDERED: ACETAMINOPHEN 325 MG TAB PO PRN (09:30)
[2023-06-27] MEDS ORDERED: ONDANSETRON HCL 4 MG/2 ML VIAL IV PRN (09:30)
[2023-06-27] MEDS ORDERED: NITROGLYCERIN 0.4 MG SL TAB SL PRN (09:30)
[2023-06-27] MEDS ORDERED: MORPHINE SULFATE INJ 2 MG/ml SYRG IV PRN (09:30)
[2023-06-27] MEDS: ALBUMIN 25% 100 ML IV SCH ×3 (09:49→19:13)
[2023-06-27] MEDS: CLOPIDOGREL BISULFATE 75 MG TAB PO SCH (10:00)
[2023-06-27] MEDS: LEVOTHYROXINE SODIUM 25 MCG TAB PO SCH (10:26)
[2023-06-27] MEDS: PANTOPRAZOLE 40 MG/10 ML VIAL INJ IV SCH (10:26)
[2023-06-27] MEDS ORDERED: ALBUTEROL SULF 2.5 MG/0.5ML(0.5%) NEB SOLN NEB PRN (12:00)
[2023-06-27] MEDS ORDERED: ALBUTEROL SULF 2.5 MG/0.5ML(0.5%) NEB SOLN NEB SCH (12:00)
[2023-06-27] MEDS: SUCRALFATE 1 GM/10 ML ORAL SUSP PO SCH ×2 (12:40→19:12)
[2023-06-27] MEDS: PIPERACILLIN-TAZOB 3.375GM 100 ML IV SCH ×2 (14:37→22:16)
[2023-06-27 16:09] VITALS: BP 110/59; PULSE 82; RESP 22; TEMP 98.1; O2SAT 99
[2023-06-27 18:16] VITALS: O2SAT 97
[2023-06-27 20:00] VITALS: PULSE 92; RESP 16; O2SAT 96
[2023-06-28 00:09] VITALS: PULSE 70; RESP 19; O2SAT 86
[2023-06-28] MEDS: SUCRALFATE 1 GM/10 ML ORAL SUSP PO SCH ×4 (00:58→18:00)
[2023-06-28] MEDS: ALBUMIN 25% 100 ML IV SCH (02:36)
[2023-06-28 05:26] LABS: Basophils # (auto) 0 10 ^3/uL (0-0.2); Basophils % (auto) 0.3 % (0.0-2.0); Eosinophils # (auto) 0.1 10 ^3/uL (0-0.8); Eosinophils % (auto) 2.1 % (0.0-7.0); Hematocrit 31.4 % (36.0-46.0); Hemoglobin 10.1 g/dL (12.2-16.2); Lymphocytes # (auto) 0.3 10 ^3/uL (0.4-5.4); Lymphocytes % (auto) 6.9 % (10.0-50.0); Mean Corpuscular Hemoglobin 29.3 pg (28.0-32.0); Mean Corpuscular Hgb Conc. 32.2 g/dL (32.0-36.0); Monocytes # (auto) 0.3 10 ^3/uL (0-1.3); Monocytes % (auto) 7.4 % (0.0-12.0); Neutrophils # (auto) 3.7 10 ^3/uL (1.6-8.6); Neutrophils % (auto) 83.3 % (37.0-80.0); Nucleated Red Blood Cells % 0.1 %; Red Blood Cells 3.45 10^6/uL (4.0-5.20); White Blood Cell 4.4 10^3/uL (4.4-10.8)
[2023-06-28 05:27] LABS: Red Cell Distribution Width 20.5 % (11.8-14.3)
[2023-06-28 05:37] LABS: Albumin 3.3 g/dL (3.4-5.0); Calcium 9.1 mg/dL (8.5-10.1)
[2023-06-28 05:40] LABS: BUN/Creatinine Ratio 19.2 (10.0-20.0); Bilirubin, Total 1.5 mg/dL (0.2-1.0); Total Protein 6.5 g/dL (6.4-8.2)
[2023-06-28 05:53] LABS: Anisocytosis Slight; Platelet Estimate Decreased
[2023-06-28 06:32] VITALS: O2SAT 93
[2023-06-28] MEDS: PIPERACILLIN-TAZOB 3.375GM 100 ML IV SCH ×3 (06:38→23:03)
[2023-06-28 07:30] VITALS: PULSE 86; O2SAT 96
[2023-06-28] MEDS: LEVOTHYROXINE SODIUM 25 MCG TAB PO SCH (07:31)
[2023-06-28] MEDS: CLOPIDOGREL BISULFATE 75 MG TAB PO SCH ×2 (10:00→17:00)
[2023-06-28] MEDS: FUROSEMIDE 20 MG/2 ML VIAL IV SCH (10:00)
[2023-06-28] MEDS: PANTOPRAZOLE 40 MG/10 ML VIAL INJ IV SCH (10:15)
[2023-06-28 18:57] VITALS: O2SAT 92
[2023-06-28 19:25] VITALS: PULSE 88; RESP 26; O2SAT 95
[2023-06-29] MEDS: SUCRALFATE 1 GM/10 ML ORAL SUSP PO SCH ×4 (00:16→23:20)
[2023-06-29] MEDS: PIPERACILLIN-TAZOB 3.375GM 100 ML IV SCH ×3 (06:00→20:42)
[2023-06-29 06:35] LABS: Basophils # (auto) 0.1 10 ^3/uL (0-0.2); Basophils % (auto) 2.1 % (0.0-2.0); Eosinophils # (auto) 0.1 10 ^3/uL (0-0.8); Eosinophils % (auto) 2.1 % (0.0-7.0); Hematocrit 36.4 % (36.0-46.0); Hemoglobin 11.4 g/dL (12.2-16.2); Lymphocytes # (auto) 0.2 10 ^3/uL (0.4-5.4); Lymphocytes % (auto) 5.9 % (10.0-50.0); Mean Corpuscular Hemoglobin 29.1 pg (28.0-32.0); Mean Corpuscular Hgb Conc. 31.4 g/dL (32.0-36.0); Mean Corpuscular Volume 92.7 fL (80.0-100.0); Monocytes # (auto) 0.3 10 ^3/uL (0-1.3); Monocytes % (auto) 7.6 % (0.0-12.0); Neutrophils # (auto) 3.4 10 ^3/uL (1.6-8.6); Neutrophils % (auto) 82.3 % (37.0-80.0); Nucleated Red Blood Cells % 0.3 %; Red Blood Cells 3.93 10^6/uL (4.0-5.20); Red Cell Distribution Width 20.9 % (11.8-14.3); White Blood Cell 4.2 10^3/uL (4.4-10.8)
[2023-06-29] MEDS: LEVOTHYROXINE SODIUM 25 MCG TAB PO SCH (06:37)
[2023-06-29 08:17] LABS: INR 1.31 (0.9-1.15); Partial Thromboplastin Time 25.2 SEC (24.5-34.5); Prothrombin Time 13.5 sec (9.3-11.8)
[2023-06-29 08:38] LABS: Urine Bacteria NONE SEEN /hpf (None Seen); Urine Blood Negative /uL (Negative); Urine Clarity Clear (Clear); Urine Color Yellow (Yellow); Urine Hyaline Cast FEW /lpf (0 - 2); Urine Protein, UAD Negative (Negative); Urine Urobilinogen Normal (Negative); Urine WBC <1 /hpf (0 - 5)
[2023-06-29 08:49] VITALS: PULSE 78; RESP 20; O2SAT 92
[2023-06-29 09:16] LABS: Cannabinoid Screen, Urine NEGATIVE (NEGATIVE)
[2023-06-29 09:18] LABS: Amphetamine Screen, Urine NEGATIVE (NEGATIVE); Barbiturate Scree,Urine NEGATIVE (NEGATIVE); Benzodiazephine Screen, Urine NEGATIVE (NEGATIVE); Cocaine Screen, Urine NEGATIVE (NEGATIVE); Opiate Scree,Urine NEGATIVE (NEGATIVE); Phencyclidine Screen, Urine NEGATIVE (NEGATIVE)
[2023-06-29] MEDS: CLOPIDOGREL BISULFATE 75 MG TAB PO SCH (10:00)
[2023-06-29] MEDS: FUROSEMIDE 20 MG/2 ML VIAL IV SCH (10:00)
[2023-06-29] MEDS: PANTOPRAZOLE 40 MG/10 ML VIAL INJ IV SCH (11:34)
[2023-06-29] MEDS: ALBUMIN 25% 100 ML IV SCH ×2 (12:18→13:00)
[2023-06-29 13:15] VITALS: BP 120/71; PULSE 78; TEMP 98.2; O2SAT 94
[2023-06-29 17:10] VITALS: BP 95/57; PULSE 86; RESP 20; TEMP 97.8; O2SAT 100
[2023-06-29 18:06] VITALS: O2SAT 96
[2023-06-29 19:36] LABS: Body Fluid Polymorphonuclear 36 % (0-25); Body Fluid Red Blood Cells 11250 CUMM (0-2000); Body Fluid White Blood Cells 125 CUMM (0-200)
[2023-06-29 19:57] LABS: Body Fluid White Blood Cells 250 CUMM (0-200)
[2023-06-29 19:58] LABS: Body Fluid Polymorphonuclear 22 % (0-25); Body Fluid Red Blood Cells 42850 CUMM (0-2000)
[2023-06-29 20:00] VITALS: PULSE 84; PULSE 91; RESP 18; O2SAT 95
[2023-06-29 22:00] VITALS: BP 112/71; PULSE 91; RESP 18; TEMP 97.9; O2SAT 94
[2023-06-30] VITALS (13 sets, daily range): BP systolic 101–104; BP diastolic 53–61; PULSE 80–92; RESP 16–18; TEMP 37.2; O2SAT 87–100
[2023-06-30] MEDS: PIPERACILLIN-TAZOB 3.375GM 100 ML IV SCH ×2 (05:22→14:00)
[2023-06-30] MEDS: SUCRALFATE 1 GM/10 ML ORAL SUSP PO SCH ×2 (06:15→12:37)
[2023-06-30] MEDS: LEVOTHYROXINE SODIUM 25 MCG TAB PO SCH (06:15)
[2023-06-30 06:37] LABS: Basophils # (auto) 0 10 ^3/uL (0-0.2); Basophils % (auto) 0.3 % (0.0-2.0); Eosinophils # (auto) 0.1 10 ^3/uL (0-0.8); Eosinophils % (auto) 1.6 % (0.0-7.0); Hematocrit 34.4 % (36.0-46.0); Hemoglobin 11.3 g/dL (12.2-16.2); Lymphocytes # (auto) 0.3 10 ^3/uL (0.4-5.4); Lymphocytes % (auto) 5.1 % (10.0-50.0); Mean Corpuscular Hemoglobin 29.2 pg (28.0-32.0); Mean Corpuscular Hgb Conc. 32.8 g/dL (32.0-36.0); Mean Corpuscular Volume 89.1 fL (80.0-100.0); Monocytes # (auto) 0.4 10 ^3/uL (0-1.3); Monocytes % (auto) 8.3 % (0.0-12.0); Neutrophils # (auto) 4.5 10 ^3/uL (1.6-8.6); Neutrophils % (auto) 84.7 % (37.0-80.0); Nucleated Red Blood Cells % 0.1 %; Red Blood Cells 3.86 10^6/uL (4.0-5.20); Red Cell Distribution Width 20.7 % (11.8-14.3); White Blood Cell 5.3 10^3/uL (4.4-10.8)
[2023-06-30] MEDS: CLOPIDOGREL BISULFATE 75 MG TAB PO SCH (09:55)
[2023-06-30] MEDS: FUROSEMIDE 20 MG/2 ML VIAL IV SCH (09:55)
[2023-06-30] MEDS: PANTOPRAZOLE 40 MG/10 ML VIAL INJ IV SCH (09:55)
[2023-06-30 14:06] LABS: Protein, Body Fluid 2.5 g/dL (.)
[2023-06-30 14:06] LABS: Protein, Body Fluid 1.4 g/dL (.)
== END 2023-06-30 15:15 | disposition home health service (06) | DRG 433 ==
LOC: ER 00:53 → EDBD 00:53 → TELE 09:33 → TELE-CENTR 06-29 13:04
PROVIDERS: ADMIT Hospitalist; ATTEND Hospitalist
PROC: 0W9G3ZZ Drainage of Peritoneal Cavity, Percutaneous Approach (ICD-10-PCS; principal; 2023-06-29)
PROC: 0W9B3ZZ Drainage of Left Pleural Cavity, Percutaneous Approach (ICD-10-PCS; 2023-06-29)
DX: K74.60 Unspecified cirrhosis of liver (principal); K76.6 Portal hypertension; R18.8 Other ascites; K72.10 Chronic hepatic failure without coma; I25.10 Atherosclerotic heart disease of native coronary artery without angina pectoris; E11.9 Type 2 diabetes mellitus without complications; E03.9 Hypothyroidism, unspecified; D69.6 Thrombocytopenia, unspecified; E78.5 Hyperlipidemia, unspecified; Z95.5 Presence of coronary angioplasty implant and graft; Z82.49 Family history of ischemic heart disease and other diseases of the circulatory system; Z79.02 Long term (current) use of antithrombotics/antiplatelets; Z82.3 Family history of stroke; Z80.0 Family history of malignant neoplasm of digestive organs; K21.9 Gastro-esophageal reflux disease without esophagitis; I25.2 Old myocardial infarction; R62.7 Adult failure to thrive; Z68.20 Body mass index [BMI] 20.0-20.9, adult
CPT/HCPCS: 36415; 36600; 70450; 71045; 74177; 76700; 76942; 80053; 80307; 80320; 81001; 82140; 82553; 82805; 83605; 83690; 83735; 83880; 83986; 84484; 85025; 85610; 85730; 86850; 86900; 86901; 87040; 87086; 87205; 89051; 93005; 94640; 97163; 99291; C9113; G0378; J0696; J2543; P9047

== ENCOUNTER 2023-07-08 06:01 | Emergency (ER) | payer OTHER ==
[~2023-07-08] VITALS: Ht 154.9 cm; Wt 59.0 kg
[~2023-07-08 06:01] MED LIST changes: -CIP500T PO
[2023-07-08 06:30] VITALS: PULSE 70; RESP 17; O2SAT 94
[2023-07-08 06:47] LABS: Basophils # (auto) 0 10 ^3/uL (0-0.2); Basophils % (auto) 0.4 % (0.0-2.0); Eosinophils # (auto) 0 10 ^3/uL (0-0.8); Eosinophils % (auto) 0.2 % (0.0-7.0); Hematocrit 37.6 % (36.0-46.0); Hemoglobin 12.4 g/dL (12.2-16.2); Lymphocytes # (auto) 0.4 10 ^3/uL (0.4-5.4); Mean Corpuscular Hemoglobin 28.7 pg (28.0-32.0); Mean Corpuscular Hgb Conc. 32.9 g/dL (32.0-36.0); Mean Corpuscular Volume 87.3 fL (80.0-100.0); Monocytes # (auto) 0.6 10 ^3/uL (0-1.3); Neutrophils # (auto) 8.6 10 ^3/uL (1.6-8.6); Neutrophils % (auto) 89.4 % (37.0-80.0); Red Blood Cells 4.31 10^6/uL (4.0-5.20); White Blood Cell 9.6 10^3/uL (4.4-10.8)
[2023-07-08 06:54] LABS: Red Cell Distribution Width 21.3 % (11.8-14.3)
[2023-07-08 07:11] LABS: INR 1.19 (0.9-1.15); Partial Thromboplastin Time 29.4 SEC (24.5-34.5); Prothrombin Time 12.4 sec (9.3-11.8)
[2023-07-08 07:13] LABS: Albumin 2.8 g/dL (3.4-5.0); BUN/Creatinine Ratio 24.2 (10.0-20.0); Bilirubin, Total 2.1 mg/dL (0.2-1.0); Calcium 9.3 mg/dL (8.5-10.1); Magnesium 2.6 mg/dL (1.6-2.6); Total Protein 6.5 g/dL (6.4-8.2)
[2023-07-08 07:30] VITALS: PULSE 71; RESP 18; O2SAT 96
[2023-07-08 15:48] LABS: COVID19 ANTIGEN SOFIA FIA NEGATIVE (NEGATIVE)
[2023-07-08 20:40] VITALS: PULSE 82; RESP 19; O2SAT 97
[2023-07-08 21:00] VITALS: TEMP 98.7
[2023-07-09 01:15] VITALS: BP 118/71; PULSE 80; RESP 19; O2SAT 95
== END 2023-07-09 01:25 ==
LOC: EDBD 06:01 → ER 06:01
DX: R07.89 Other chest pain (principal); R10.13 Epigastric pain; J90 Pleural effusion, not elsewhere classified; I11.0 Hypertensive heart disease with heart failure; I50.89 Other heart failure; E11.9 Type 2 diabetes mellitus without complications; E03.9 Hypothyroidism, unspecified; E44.0 Moderate protein-calorie malnutrition; E80.6 Other disorders of bilirubin metabolism; K74.69 Other cirrhosis of liver; R18.8 Other ascites; I25.10 Atherosclerotic heart disease of native coronary artery without angina pectoris; Z98.61 Coronary angioplasty status; Z90.49 Acquired absence of other specified parts of digestive tract; Z79.899 Other long term (current) drug therapy; Z79.84 Long term (current) use of oral hypoglycemic drugs; Z20.822 Contact with and (suspected) exposure to COVID-19
CPT/HCPCS: 36415; 71045; 74177; 76705; 76942; 80053; 83690; 83735; 83880; 84443; 84484; 85025; 85610; 85730; 87426; 93005; 97163; 99285; C1729